=== PATIENT | female | born 1995 | race African-American/Black ===

== ENCOUNTER 2019-05-01 07:45 | Day surgery (SDC) | payer OTHER ==
[2019-04-27 12:11] VITALS: BMI 35.9
[2019-05-01] MEDS ORDERED: MIDAZOLAM HCL 2 MG/2 ML SINGLE DOSE VIAL ONE (08:18)
[2019-05-01] MEDS ORDERED: ONDANSETRON 4 MG/2 ML VIAL IVPUSH PRN ×2 (08:28→08:56)
[2019-05-01] MEDS ORDERED: oxyCODONE HCL 5 MG TABLET PO PRN ×3 (08:28→08:56)
[2019-05-01] MEDS ORDERED: LACTATED RINGERS SOLUTION 1,000 ML IV SCH (08:30)
--- NOTE | 2019-05-01 08:50 | HP ---
History & Physical Update - History History: No Change - Physical Physical: No Change - Assessment Assessment: No Change - Plan Plan: No Change (H&P reviewed and consistent with 04/28/19 all questions answered consent signed)
[2019-05-01] MEDS ORDERED: IBUPROFEN 800 MG/8 ML IJ IVPB PRN (08:56)
[2019-05-01] MEDS ORDERED: IBUPROFEN 600 MG TABLET (FP) PO PRN (08:56)
--- NOTE | 2019-05-01 08:56 | OP ---
Operative Note - Note: Operative Date: 05/01/19 Pre-Operative Diagnosis: 24yo P0 s/p SAB with abnormal bleeding, retained tissue vs. polyp Operation: Hysteroscopy/Polypectomy Findings: 1. Two Endometrial polyps 2. Overgrown endometrium Post-Operative Diagnosis: Same as Pre-op Surgeon: Sandi Pittman Anesthesiologist/RECREATION ADVISER: Naga Dunne Anesthesia: General Estimated Blood Loss (mls): 10 Drains & Tubes with Location: Fluid deficit - 400cc Drains, Volume Out (mls): 300 Fluid Volume Replaced (mls): 700 Operative Report Dictated: Yes
[2019-05-01] MEDS ORDERED: ELECTROLYTE-148 SOLN 1,000 ML IV SCH (09:00)
[2019-05-01] MEDS ORDERED: SUCCINYLCHOLINE CHLORIDE 200 MG/10 ML SYRINGE ONE ×2 (09:20→14:39)
[2019-05-01] MEDS ORDERED: PROPOFOL 20 ML ONE ×3 (10:03)
[2019-05-01 12:38] VITALS: TEMP 98
[2019-05-01] MEDS ORDERED: ROCURONIUM BROMIDE 50 MG/5 ML SYRINGE ONE (14:39)
[2019-05-01 14:51] VITALS: BP 127/78; PULSE 81
--- NOTE | 2019-05-02 05:59 | OP ---
DATE OF OPERATION: 05/01/2019 PREOPERATIVE DIAGNOSIS: A 24-year-old para 0 status post miscarriage with abnormal bleeding, retained products versus endometrial polyp. OPERATION: Hysteroscopy, polypectomy, dilation and curettage. FINDINGS: Two endometrial polyps and overgrown endometrium. POSTOPERATIVE DIAGNOSIS: A 24-year-old para 0 status post miscarriage with abnormal bleeding, and endometrial polyps. SURGEON: Sandi Pittman MD SENIOR DOT NET DEVELOPER: Naga Dunne CRNA ANESTHESIA: General. DESCRIPTION OF THE OPERATIVE PROCEDURE: After ensuring informed consent patient was brought to the operating room where she was placed in dorsal lithotomy position. Perineum and vagina were prepped and draped in sterile fashion. Since retractors were placed into the vagina, cervix was articulated with single-tooth tenaculum and dilated to accommodate 6.3 mm Symphion hysteroscope. Hysteroscope was primed, wide-balanced, introduced through the cervix without any difficulty, and entered into the endometrial cavity. Above findings were noted, 2 endometrial polyps and overgrown endometrium. The hand-held resectoscope was introduced through the operative channel in the hysteroscope, and resection of the polyps was accomplished. Gentle curettage with No. 2 curette was performed, as well, and look-back with hysteroscope was performed, as well. Cavity was found to be intact. It was all tissue resected, polyps and endometrial curettings sent to pathology. All instruments were removed from cervix, vagina, and uterus. Estimated blood loss was 10 mL. Urine output 300 mL. Patient received 700 mL of IV fluids, and fluid deficit was found to be 400 mL at the end of the procedure. Patient tolerated the procedure well. Instrument and sponge counts were correct x2. Patient was brought to the recovery room in stable condition. Liliana [id number]
--- NOTE | 2019-05-02 16:42 | PATH ---
Surgical Pathology Report Patient Name: MARY JO PRYOR [facility]. Rec. #: [id number] /Age/Gender: 1995 (Age: 24) / F Account: [id number] Location: [facility] Taken: 05/01/2019 Received: 05/01/2019 Reported: 05/02/2019 Physicians: Sandi Pittman M.D. Specimen(s) Received ENDOMETRIAL CURETTINGS AND POLYPS Clinical History Submucosal leiomyoma of uterus Final Diagnosis ENDOMETRIAL CURETTINGS AND POLYPS: FRAGMENTS OF ENDOMETRIAL POLYP (FUNCTIONAL TYPE). SEPARATE FRAGMENTS OF SECRETORY ENDOMETRIUM. Electronically Signed Tanya Noyola M.D. Gross Description Received in formalin labeled "endometrial curettings and polyps," is a 5.0 x 3.7 x 0.5 cm aggregate of mcmillan-pink soft tissue fragments admixed with blood clot. The formalin is filtered and the specimen is entirely submitted in 5 cassettes. /05/01/2019 saudi/05/01/2019
== END 2019-05-01 14:53 | disposition home or self-care (01) ==
LOC: JASU-SURG 07:45
PROVIDERS: ATTEND Obstetrics & Gynecology
PROC: 0UJD8ZZ Inspection of Uterus and Cervix, Via Natural or Artificial Opening Endoscopic (ICD-10-PCS; 2019-05-01)
PROC: 0UB97ZX Excision of Uterus, Via Natural or Artificial Opening, Diagnostic (ICD-10-PCS; principal; 2019-05-01 09:00)
PROC: 0UDB7ZX Extraction of Endometrium, Via Natural or Artificial Opening, Diagnostic (ICD-10-PCS; 2019-05-01 09:00)
DX: N93.9 Abnormal uterine and vaginal bleeding, unspecified (principal); N84.0 Polyp of corpus uteri
CPT/HCPCS: 36415; 84703; 86850; 86900; 86901; 88305-TC; 94760